=== PATIENT | male | born 1960 | race Caucasian/White ===

== ENCOUNTER 2016-07-05 15:57 | Emergency (ER) | payer SELFPAY ==
[~2016-07-05 15:57] MED LIST: CLIN1CAP6 PO
[2016-07-05 16:08] VITALS: BP 142/90; PULSE 74; RESP 18; TEMP 97.8; O2SAT 98
--- NOTE | 2016-07-05 16:31 | PD ---
HPI Chief Complaint: Fall Time Seen by Provider: 16:31 Travel History International Travel<30 days: No Contact w/Intl Traveler<30days: No Traveled to known affect area: No History of Present Illness HPI 56-year-old male presents to the emergency Department with complaint of left upper back pain that radiates to his left arm after falling approximately 12 feet from the top of the ladder about 2 hours ago. He drove himself here for evaluation. Reports hitting his head on the roof on his way down. Did not hit his head on the ground. Denies loss of consciousness. Denies neck pain or back pain. Denies chest pain, shortness of breath, abdominal pain, nausea, vomiting. Denies focal deficits or weakness. Denies change in mentation, confusion, disorientation, slurred speech, headache. Denies paresthesias, loss of sensation, decreased range of motion, decreased strength to right upper and bilateral lower extremity. Reports decreased range of motion to the left shoulder secondary to pain. Reports the pain as a stabbing pain that is under his left shoulder blade that radiates to his left fingertips. He says he has experienced this pain in the past and has had left shoulder pain since 2012 with similar symptoms; says he was told he has cervical radiculopathy. He does see chiropractic for the symptoms. Pain is worse with sitting. Patient is better with standing. He has not taken any medications or tried any treatments to alleviate his symptoms. He denies being up-to-date on his tetanus vaccine. No known allergies. Denies significant past medical history. Does not have an established primary care provider. No other modifying factors or associated signs and symptoms. PFSH Past Medical History Medical History: Denies Significant Hx Cancer: No Cardiovascular Problems: No Endocrine: No Genitourinary: No Immune Disorder: No Musculoskeletal: No Neurologic: No Psychiatric: No Reproductive: No Respiratory: No Past Surgical History Abdominal Surgery: Yes AICD: No Appendectomy: Yes Arteriovenous Shunt: No Cardiac Surgery: No Ear Surgery: No Endocrine Surgery: No Eye Surgery: No Genitourinary Surgery: No Insulin Pump: No Joint Replacement: No Oral Surgery: No Pacemaker: No Thoracic Surgery: No Other Surgery: Yes (HERNIA REPAIR ) Social History Alcohol Use: No Tobacco Use: Yes (1 PPD) Substance Use: No Allergies-Medications (Allergen,Severity, Reaction): Coded Allergies: No Known Allergies (Verified , 12/15/13) Reported Meds & Prescriptions Reported Meds & Active Scripts Active No Active Prescriptions or Reported Medications Review of Systems Except as stated in HPI: all other systems reviewed are Neg Physical Exam Narrative GENERAL: Well-nourished, well-developed male patient, in no acute distress SKIN: Warm and dry. Abrasion noted to left elbow and multiple small abrasions noted to left forearm. HEAD: Atraumatic. Normocephalic. Small abrasion noted to the right lateral forehead just above the eyebrow. No other facial or scalp abrasions or lacerations noted. No facial droop noted. Tongue midline. EYES: Pupils equal and round at 3 mm with brisk reaction. No scleral icterus. No injection or drainage. No raccoon eyes. No orbital tenderness on palpation bilaterally. ENT: Mucosa pink and moist. No erythema or exudates. No uvular edema. No uvular , palatal, or tonsillar deviation. Airway patent. Nares without nasal blood, purulent drainage or septal hematoma. No rhinorrhea. EARS: Bilateral pinnae and external canals appear within normal limits. Bilateral tympanic membranes without erythema, dullness, hemotympanum or perforation. No otorrhea. No trevino signs. NECK: Cervical collar in place: Removed and discontinued during physical exam. Trachea midline no midline point tenderness on palpation of the cervical spine.. Active rotation of the neck greater than 45 left and right. No obvious deformities. CHEST: Nontender throughout without deformity or crepitance. No retractions or use of accessory muscles. CARDIOVASCULAR: Regular rate and rhythm. No murmur appreciated. RESPIRATORY: No accessory muscle use. Clear to auscultation. Breath sounds equal bilaterally. GASTROINTESTINAL: Abdomen soft, non-tender, nondistended. Hepatic and splenic margins not palpable. Bowel sounds are active 4 quadrants. MUSCULOSKELETAL: Left shoulder with decreased range of motion; with abduction to approximately 45; no obvious deformity; shoulders are equal; with tenderness on palpation to the posterior and anterior aspect; without erythema, edema, ecchymosis. Left approximately supple and non-tense with 2+ radial pulse and sensory intact without erythema or edema. No obvious deformities. No clubbing. No cyanosis. No edema. BACK: No midline Point tenderness on palpation of the lumbar or thoracic spine. Reproducible tenderness to the trapezius muscle over the left scapular, upper back area. No obvious deformities. Patient sitting up in bed at 90. NEUROLOGICAL: Awake and alert. Oriented 3. No obvious cranial nerve deficits. Motor grossly within normal limits. Normal speech. Moves all extremities. 5/5 strength to all extremities. Sensory intact. PSYCHIATRIC: Appropriate mood and affect; insight and judgment normal. Data Data Last Documented VS Vital Signs Date Time Temp Pulse Resp B/P Pulse Ox O2 Delivery O2 Flow Rate FiO2 07/05/16 16:08 97.8 74 18 142/90 98 Orders Shoulder, Complete (>2vws) (07/05/16 16:36) Tetanus/Diphtheria Tox Adult (Tetanus/Di (07/05/16 16:45) Ribs, Uni (W/Exp Cxr-Min 3vw) (07/05/16 ) Ketorolac Inj (Toradol Inj) (07/05/16 18:00) Orphenadrine Inj (Norflex Inj) (07/05/16 18:00) Resp Incentive Spirometry (07/05/16 ) MDM Medical Decision Making Medical Screen Exam Complete: Yes Emergency Medical Condition: Yes Medical Record Reviewed: Yes Differential Diagnosis Fall, abrasions, acute exacerbation of chronic cervical radiculopathy, shoulder contusion, shoulder fracture, shoulder strain Narrative Course 56-year-old male who fell approximately 12 feet from a ladder and landed on his left side physical exam and history of present illness consistent with acute exacerbation of chronic cervical radiculopathy and left shoulder contusion. Patient came in to be evaluated by a private vehicle. Patient has cervical collar in place which was placed upon arrival to the ER. He denies neck pain. The cervical collar was removed and discontinued during physical exam. [place] C-Spine Rule suggests the C-Spine can be cleared clinically of fracture , and imaging is not required. There is no midline point tenderness on palpation of the cervical spine. The patient is able to actively rotate the neck 45 left and right. The patient is sitting up in bed at 90. The patient is ambulatory. The patient admits to hitting their head, but denies loss of consciousness. Denies nausea, vomiting. On physical exam the patient is without raccoon eyes, trevino signs, rhinorrhea, or hemotympanum. I do not suspect open or depressed skull fracture, and the patient has no signs of basilar skull fracture. [place] CT Head Injury Rule suggests a head CT is not necessary for this patient and clears the patient for head injury without imaging. Left shoulder x-ray ordered. Left rib with respiratory chest x-ray ordered. 1800: Left shoulder x-ray with no acute findings. Left rib with expiratory chest x-ray concludes fractures of fourth, fifth, sixth ribs in the left. No pneumothorax. I discussed the patient's findings with Dr. Mendoza, my attending physician, and she agreed patient is stable for discharge. Toradol and Norflex administered in the ER. Tetanus updated in the ER. Incentive spirometer ordered for home; patient was instructed on use prior to discharge. Percocet, ibuprofen, Robaxin prescribed for home. Patient verbalizes understanding and agreement with treatment plan. Patient is medically cleared and stable for discharge. Discussed reasons to return to the emergency department. Instructed patient to follow up with primary care provider. Patient agrees with treatment plan. The patients vital signs are stable and the patient is stable for outpatient follow-up and treatment. Patient discharged home, stable and in no acute distress. Diagnosis Primary Impression: Fall from ladder Qualified Code: W11.XXXA - Fall from ladder, initial encounter Additional Impressions: Left rib fracture Qualified Code: S22.42XA - Closed fracture of multiple ribs of left side, initial encounter Contusion of left shoulder Qualified Code: S40.012A - Contusion of left shoulder, initial encounter Cervical radiculopathy Referrals: Primary Care Physician Patient Instructions: Cervical Radiculopathy (ED), Fall Prevention (ED), General Instructions, Rib Fracture (ED), Shoulder Pain (ED) Departure Forms: Tests/Procedures, Work Release Enter return to work date: Jul 12, 2016 Additional Instructions: Ibuprofen or Tylenol as directed and as needed to reduce pain Robaxin as prescribed and as needed to reduce muscle spasms Heating pad and/or ice to affected area to reduce pain Avoid aggravating activities; increase activity as tolerated Incentive spirometer every 2 hours while awake for deep breathing exercises Follow-up with a primary care provider Return to the emergency department immediately with worsening of symptoms Med/Other Pt SpecificInfo: Prescription(s) given Scripts Methocarbamol (Robaxin)500 Mg [id number] Mg PO QID PRN (MUSCLE SPASM) #30 TAB Ref 0 Prov:Masha Calle KECIA 07/05/16 Ibuprofen 800 Mg Pfw428 Mg PO Q6HR PRN (PAIN LESS THAN 5 ON SCALE) #30 TAB Ref 0 Prov:Masha Calle 07/05/16 Oxycodone-Acetaminophen (Percocet)5-325 mg Tab1-2 Tab PO Q4-6H PRN (PAIN GREATER THAN 5) #20 TAB Ref 0 Prov:Tabatha Mendoza MD 07/05/16 Disposition: 01 DISCHARGE HOME Condition: Stable Masha Calle Jul 05, 2016 16:31
[2016-07-05] MEDS ORDERED: TETANUS/DIPHTHERIA TOXOID ADULT 0.5 ML VIAL IM ONE (16:45)
--- NOTE | 2016-07-05 17:31 | PD ---
Data Data Last Documented VS Vital Signs Date Time Temp Pulse Resp B/P Pulse Ox O2 Delivery O2 Flow Rate FiO2 07/05/16 16:08 97.8 74 18 142/90 98 Orders Shoulder, Complete (>2vws) (07/05/16 16:36) Tetanus/Diphtheria Tox Adult (Tetanus/Di (07/05/16 16:45) Ribs, Uni (W/Exp Cxr-Min 3vw) (07/05/16 ) MDM Supervised Visit with MAYELIN: Yes Narrative Course The history, exam, and medical decision-making in the associated mid-level provider note were completed with my assistance. I reviewed and agree with the findings presented. I attest that I had a [id number] encounter with the patient on the same day, and personally performed and documented my assessment and findings in the medical record. *My assessment and Findings: This 56-year-old man who fell while getting from his roof back on a ladder, landing on his left side, presents with left shoulder pain and left subscapular rib pain. Suspect rib fractures. Surprisingly he's had neck and back all seem to be okay. His small scrape on his head he said he got in the room but did not hit his head on the ground. His only complaint is pain in the left shoulder radiates in the left arm. Today feel similar to some radiculopathy had in the past. He has no tenderness in the neck, he can fully range the neck without issues. He has no paresthesias. We'll check x-ray left shoulder, left ribs, likely discharge. Scripts No Active Prescriptions or Reported Meds Fam Nazario MD Jul 05, 2016 17:31
--- NOTE | 2016-07-05 17:42 | RADRPT ---
EXAM DATE/TIME: 07/05/2016 17:05 [facility] COMPARISON: No previous studies available for comparison. INDICATIONS : Left shoulder blade pain after falling off a ladder. MEDICAL HISTORY : Prior dislocation. SURGICAL HISTORY : None. ENCOUNTER: Initial ACUITY: 1 day PAIN SCORE: 10/10 LOCATION: Left shoulder. FINDINGS: Multiple view examination of the left shoulder demonstrates no evidence of fracture or dislocation. The glenohumeral and acromioclavicular joints are maintained. There is normal range of motion betwee n internal and external rotation. Bony mineralization is normal. CONCLUSION: No acute fracture. Bigg Mackey MD on July 05, 2016 at 17:39 Board Certified Radiologist. This report was verified electronically.
--- NOTE | 2016-07-05 17:50 | RADRPT ---
EXAM DATE/TIME: 07/05/2016 17:10 [facility] COMPARISON: No previous studies available for comparison. INDICATIONS : Left sided rib pain after fall off ladder. MEDICAL HISTORY : None. SURGICAL HISTORY : None. ENCOUNTER: Initial ACUITY: 2 days PAIN SCORE: 5/10 LOCATION: Left upper ribs. FINDINGS: Multiple views of the left ribs were performed. There are nondisplaced fractures involving the fourt h through sixth ribs on the left.. No destructive lesions or areas of periosteal thickening are seen . Expiratory view of the chest is negative for pneumothorax. The mediastinal structures are midline . CONCLUSION: 4-6 rib fractures in the left. No pneumothorax. Gerber Tovar MD on July 05, 2016 at 17:46 Board Certified Radiologist. This report was verified electronically.
[2016-07-05] MEDS ORDERED: PERC5TAB12 PO (17:59)
[2016-07-05] MEDS ORDERED: ROBA500T PO (18:00)
[2016-07-05] MEDS ORDERED: KETOROLAC TROMETHAMINE 60 MG/2 ML (IM) VIAL IM ONE (18:00)
[2016-07-05] MEDS ORDERED: IBUP800T23 PO (18:00)
[2016-07-05] MEDS ORDERED: ORPHENADRINE INJ 60 MG/2 ML AMP IM ONE (18:00)
== END 2016-07-05 18:40 | disposition home or self-care (01) ==
LOC: NEPA 15:57
DX: S22.42XA Multiple fractures of ribs, left side, initial encounter for closed fracture (principal); S40.012A Contusion of left shoulder, initial encounter; M54.12 Radiculopathy, cervical region; Z23 Encounter for immunization; W11.XXXA Fall on and from ladder, initial encounter; Y93.89 Activity, other specified; Y92.9 Unspecified place or not applicable; Y99.9 Unspecified external cause status; F17.210 Nicotine dependence, cigarettes, uncomplicated
CPT/HCPCS: 71101; 73030; 90471; 90714; 96372; 96374; 99283; J1885; J2360

== ENCOUNTER 2016-08-01 16:48 | Emergency (ER) | payer SELFPAY ==
[~2016-08-01] VITALS: Ht 177.8 cm; Wt 80.0 kg
[~2016-08-01 16:48] MED LIST changes: -CLIN1CAP6 PO; +IBUP800T23 PO; +PERC5TAB12 PO; +ROBA500T PO
[2016-08-01 16:50] VITALS: BP 139/83; PULSE 77; RESP 24; TEMP 97.3; O2SAT 96
--- NOTE | 2016-08-01 17:34 | PD ---
HPI Chief Complaint: Pain: Acute or Chronic Time Seen by Provider: 17:28 Travel History International Travel<30 days: No Contact w/Intl Traveler<30days: No Traveled to known affect area: No History of Present Illness HPI Patient 56-year-old male presents emergency Department left upper extremity pain and weakness for the past 2 weeks. Patient states she has a history of degenerative disc disease in his neck. He was seen by Dr. marie and had a CT of his neck which did show some degenerative changes. Patient has become concerned because the hand and arm become weak. PFSH Past Medical History Cancer: No Cardiovascular Problems: No Endocrine: No Gastrointestinal Disorders: No Genitourinary: No Immune Disorder: No Implanted Vascular Access Dvce: No Musculoskeletal: Yes (neck pain hx) Neurologic: No Psychiatric: No Reproductive: No Respiratory: No Tetanus Vaccination: < 5 Years Influenza Vaccination: No Past Surgical History Abdominal Surgery: Yes AICD: No Appendectomy: Yes Arteriovenous Shunt: No Cardiac Surgery: No Ear Surgery: No Endocrine Surgery: No Genitourinary Surgery: No Insulin Pump: No Joint Replacement: No Oral Surgery: No Pacemaker: No Thoracic Surgery: No Other Surgery: Yes (HERNIA REPAIR INFANT) Social History Alcohol Use: No Tobacco Use: Yes (/2 PPD) Substance Use: No Allergies-Medications (Allergen,Severity, Reaction): Coded Allergies: No Known Allergies (Verified , 08/01/16) Reported Meds & Prescriptions Reported Meds & Active Scripts Active Prednisone 20 Mg Tab 60 Mg PO DAILY 5 Days Ultram (Tramadol HCl) 50 Mg Tab 50 Mg PO Q6H PRN Review of Systems Except as stated in HPI: all other systems reviewed are Neg Physical Exam Narrative GENERAL: Well-developed well-nourished no apparent distress. SKIN: Focused skin assessment warm/dry. HEAD: Atraumatic. Normocephalic. EYES: Pupils equal and round. No scleral icterus. No injection or drainage. ENT: No nasal bleeding or discharge. Mucous membranes pink and moist. NECK: Trachea midline. No JVD. CARDIOVASCULAR: Regular rate and rhythm. No murmur appreciated. RESPIRATORY: No accessory muscle use. Clear to auscultation. Breath sounds equal bilaterally. GASTROINTESTINAL: Abdomen soft, non-tender, nondistended. Hepatic and splenic margins not palpable. MUSCULOSKELETAL: No obvious deformities. No clubbing. No cyanosis. No edema. No bony tenderness of the left upper extremity the patient does have 4/5 strength in flexion at the elbow in 3/5 washer carcass strength in the left hand. Full 5 out of 5 strength in all muscle groups in the right upper extremity. Pulse motor and sensory intact distally in all 4 extremities. DTRs are 2+ and equal bilaterally. NEUROLOGICAL: Awake and alert. No obvious cranial nerve deficits. Motor grossly within normal limits. Normal speech. PSYCHIATRIC: Appropriate mood and affect; insight and judgment normal. Data Data Last Documented VS Vital Signs Date Time Temp Pulse Resp B/P Pulse Ox O2 Delivery O2 Flow Rate FiO2 08/01/16 17:25 17 08/01/16 16:50 97.3 77 139/83 96 Room Air Orders Mri C Spine W/O Contrast (08/01/16 ) Ibuprofen (Motrin) (08/01/16 18:00) MDM Medical Decision Making Medical Screen Exam Complete: Yes Emergency Medical Condition: Yes Differential Diagnosis Brachial plexus stretch injury, cervical stenosis, degenerative disc disease, radiculopathy. Narrative Course 56-year-old male presents emergency department for pain in her left upper extremity for the past 2 weeks after falling off a ladder. He has been evaluated here by CT head and C-spine already. He does have objective weakness and no left upper extremity but I think that a lot of this is secondary to pain limitations. Prudence suggests that Patient does have indications for MRI of C- spine given his weakness. MRI was obtained which just shows some mild Last 24 hours Impressions Cervical Spine MRI 08/01/16 0000 Signed Impressions: Service Date/Time: Monday, August 01, 2016 18:00 - CONCLUSION: Broad mild disc protrusions at the C3-4, C5-6 and C6-7 levels as described. Bunny Apodaca MD Patient on reassessment is now having a little bit better strength 4 out of 5 strength in flexion and washer carcass strength on left upper extremity. I discussed with the patient symptomatically management at this time. He needs to follow up with a primary care physician. Discussed stretching exercises. Discussed return to ED criteria. There is no indication further workup at this time. He is stable for discharge. Diagnosis Primary Impression: Radiculopathy affecting upper extremity Referrals: Steven Wilkins MD Med/Other Pt SpecificInfo: Prescription(s) given Scripts Prednisone 20 Mg Tab60 Mg PO DAILY 5 Days Ref 0 Prov:Govea,Raleigh J MD 08/01/16 Tramadol (Ultram)50 Mg Tab50 Mg PO Q6H PRN (PAIN) #12 TAB Ref 0 Prov:Raleigh Govea MD 08/01/16 Disposition: 01 DISCHARGE HOME Condition: Stable Raleigh Govea MD Aug 01, 2016 17:33
[2016-08-01] MEDS ORDERED: IBUPROFEN 600 MG TAB PO ONE (18:00)
--- NOTE | 2016-08-01 19:09 | RADRPT ---
EXAM DATE/TIME: 08/01/2016 18:00 [facility] COMPARISON: No previous studies available for comparison. INDICATIONS : Neck and left arm pain. MEDICAL HISTORY : None. SURGICAL HISTORY : Appendectomy. Inguinal hernia repair. ENCOUNTER: Initial ACUITY: 1 week PAIN SCORE: 6/10 LOCATION: Paraspinal TECHNIQUE: Multiplanar, multisequence MRI examination of the cervical spine was performed. FINDINGS: VERTEBRAE: Normal vertebral body height. Homogeneous marrow signal. ALIGNMENT: No evidence of subluxation. CORD: Normal configuration and signal. POST FOSSA: The cerebellar tonsils are normal in position. C2-C3: The thecal sac has a normal configuration. There is no evidence of disc herniation or spinal canal s tenosis. The neural foramina are patent bilaterally. C3-C4: Broad left paracentral disc protrusion slightly effacing left lateral recess. Canal is satisfactory. C4-C5: The thecal sac has a normal configuration. There is no evidence of disc herniation or spinal canal s tenosis. The neural foramina are patent bilaterally. C5-C6: Broad right paracentral disc protrusion mildly effacing the lateral recess. Mild foraminal stenosis. Canal is adequate. C6-C7: Broad mild undulating dorsal disc protrusion producing slight flattening of thecal sac and mild bilat eral foraminal stenosis. C7-T1: The thecal sac has a normal configuration. There is no evidence of disc herniation or spinal canal s tenosis. The neural foramina are patent bilaterally. CONCLUSION: Broad mild disc protrusions at the C3-4, C5-6 and C6-7 levels as described. Bunny Apodaca MD on August 01, 2016 at 19:04 Board Certified Radiologist. This report was verified electronically.
[2016-08-01] MEDS ORDERED: ULTR50TA5 PO (19:34)
[2016-08-01] MEDS ORDERED: PRED20 PO (19:34)
== END 2016-08-01 20:40 | disposition home or self-care (01) ==
LOC: NEPD 16:48
DX: M54.10 Radiculopathy, site unspecified (principal); M54.2 Cervicalgia; F17.200 Nicotine dependence, unspecified, uncomplicated
CPT/HCPCS: 72141